=== PATIENT | female | born 1930 | race Caucasian/White ===

== ENCOUNTER → 2016-09-08 | Outpatient (CLI) | payer OTHER, MEDICARE | LOC: BMCIMAGING 10:07 | PROVIDERS: ATTEND Orthopaedic Surgery | DX: M25.851 Other specified joint disorders, right hip (principal); Z96.642 Presence of left artificial hip joint ==

== ENCOUNTER → 2016-11-23 | Outpatient (CLI) | payer OTHER, MEDICARE | LOC: BMCIMAGING 13:24 | PROVIDERS: ATTEND Physician Assistant | DX: M25.562 Pain in left knee (principal); W19.XXXA Unspecified fall, initial encounter ==

== ENCOUNTER → 2018-02-15 | Outpatient (CLI) | payer OTHER, MEDICARE | LOC: BMCIMAGING 09:29 | PROVIDERS: ATTEND Orthopaedic Surgery | DX: M16.11 Unilateral primary osteoarthritis, right hip (principal); Z96.642 Presence of left artificial hip joint ==

== ENCOUNTER → 2018-04-18 | Outpatient (CLI) | payer OTHER, MEDICARE | LOC: FIMAGING 12:49 | PROVIDERS: ATTEND Urology | DX: N20.0 Calculus of kidney (principal); K57.30 Diverticulosis of large intestine without perforation or abscess without bleeding; K59.00 Constipation, unspecified; Z87.440 Personal history of urinary (tract) infections ==

== ENCOUNTER → 2018-06-30 | Outpatient (CLI) | payer OTHER, MEDICARE | LOC: FIMAGING 13:35 | PROVIDERS: ATTEND Orthopaedic Surgery | DX: M16.11 Unilateral primary osteoarthritis, right hip (principal) ==

== ENCOUNTER 2018-09-25 09:54 | Inpatient (IN) | payer OTHER, MEDICARE ==
--- NOTE | 2018-09-25 06:49 | PDIAF ---
- Diagnosis Diagnosis: right hip djd Code Status: Full Code - Medication Management Discharge Medications: electronically signed and located in the Home Medication List. - Orders Services needed: Home Care, Physical Therapy Home Care Face to Face: I certify that this patient was under my care and that I had the required zclw-ed-qoin encounter meeting the encounter requirements on the discharge day. My findings support the fact that the patient is homebound as defined in Home Care Face to Face Continued: CMS Chapter 7 Medicare Benefits Manual 30.1.1 , The condition of the patient is such that there exists a normal inability to leave home and consequently, leaving home would require a considerable and taxing effort. Diet Recommendation: no restrictions on diet Diet Texture: Regular Texture Diet Additional Instructions: TOTAL JOINT ARTHROPLASTY DISCHARGE INSTRUCTIONS 1. Your surgeon follows the [facility] protocol for reducing your risk of DVT (blood clots) following surgery. Medication will be ordered to prevent blood clots. A sudden increase in calf pain and/or swelling could indicate a blood clot in your leg. If this occurs, please call your surgeon or his/her bookkeeping assistant. An ultrasound of the leg may be necessary to diagnose a blood clot. If you have conditions that make you a higher risk for blood clots, your surgeon may use more aggressive ways to prevent them. Notify your surgeon if you think you are a high risk for blood clots. 2. Wear your white surgical stockings (KESHA hose) for 2 weeks. This decreases your swelling and may help prevent blood clots. It is ok to remove KESHA hose at night time to give your legs a break. 3. Swelling and bruising in the surgical leg is common. If you feel that it is excessive, please notify your surgeon. 4. Elevate your surgical leg with the ankle above the hip several times every day. Please keep the leg straight when you elevate by putting pillows under your foot. Do not put pillows under your knee. This will make being able to fully straighten more difficult. This is uncomfortable, but try to do it as much as possible. 5. For total knee replacements use compressive wrap on your knee for 3-5 days after surgery, then you can discontinue it. 6. Use a walker or crutches for 1-2 weeks. Progress your weight-bearing as tolerated. You may start to use a cane when you feel stable and safe. 7. You will receive physical therapy instructions in the hospital. Continue those exercises at home. There are additional exercises in the total joint booklet you were given before surgery. Outpatient physical therapy will begin 7- 10 days after surgery. Please schedule this in advance. 8. Use ice on your knee at least 3-5 times every day for 30 minutes. This helps reduce pain and swelling. Also use it at night before falling asleep. 9. Leave your surgical dressing in place for 2 weeks. Your dressing is water resistant, but not waterproof. Cover it with Saran Wrap or Tjqxq-r-Etah before showering. You may shower as soon as you feel safe entering a shower. If you notice bleeding from your incision 2 or 3 days after surgery, please notify your surgeon. 10. Due to narcotics, decreased activity and altered diet, most patients experience constipation after surgery. Use mpbf-kze-kkgwrwy stool softeners while you are on narcotics. 11. You may drive a car when you are comfortable bearing weight, have good muscular control of your leg and are off narcotics. This usually occurs 2-4 weeks after surgery, depending on which leg was operated on. 12. If there are questions not addressed here, please refer the [facility] book given for more information. If you still have questions, please contact your surgeon s office. 13. If you have a life-threatening emergency, please call 911 and go to the emergency room immediately. For non-life threatening emergencies, please call your physicians office for advice before going to the emergency room. - Follow Up Care Current Providers and Referrals: Ivanna Ferro MD [Primary Care Provider] - Antony Miguel MD [Medical Doctor] -
--- NOTE | 2018-09-25 06:49 | PDHPUP ---
History & Physical Update H&P update statement: This history and physical update is based on an assessment of the patient which was completed after admission or registration (within 24 hours), but prior to the surgery/procedure. H&P update: no change in patient's condition since H&P completed
[~2018-09-25 09:54] MED LIST: ROPIVACAINE 0.2% 80 MG, EPINEPHrine 0.2 MG, KETOROLAC TROMETHAMINE 30 MG, morphINE 10 M... IU ONE; TRANEXAMIC ACID 1,000 MG in NS 100 ML IV ONE
[2018-09-25] MEDS ORDERED: ceFAZolin 1 GM/5 ML SYR ONE (10:33)
[2018-09-25] MEDS ORDERED: ceFAZolin 2 GM/DEXTROSE 100 ML IV ONE (10:36)
[2018-09-25] MEDS ORDERED: LR 1,000 ML IV ONE (10:36)
[2018-09-25] MEDS ORDERED: LIDOCAINE 1% 2 ML INJ ID PRN (10:36)
[2018-09-25] MEDS ORDERED: FAMOTIDINE 20 MG TAB PO ONE (10:36)
[2018-09-25] MEDS ORDERED: ACETAMINOPHEN 325 MG TAB PO ONE (10:36)
--- NOTE | 2018-09-25 13:14 | PDANEPAE ---
ANE Past Medical History - Cardiovascular History Hx Hypertension: Yes Hx Arrhythmias: No Hx Chest Pain: No Hx Coronary Artery / Peripheral Vascular Disease: No Hx CHF / Valvular Disease: No Hx Palpitations: No - Pulmonary History Hx COPD: No Hx Asthma/Reactive Airway Disease: No Hx Recent Upper Respiratory Infection: No Hx Oxygen in Use at Home: Yes O2 in Use at Home (L/minute): 2.L nocturnal hypoxia Hx Sleep Apnea: No Sleep Apnea Screening Result - Last Documented: Negative - Neurologic History Hx Cerebrovascular Accident: No Hx Seizures: No Hx Dementia: No - Endocrine History Hx Diabetes: No - Renal History Hx Renal Disorders: No Renal History Comment: 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 TOTAL L ANKLE REPLACEMENT. 3 SURGERIES R KIDNEY FOR INFECTIONS 2012. Left hip arthoplasy 2015 ANE Review of Systems Review of Systems: - Exercise capacity METS (RN): 4 METS ANE Patient History - Allergies Allergies/Adverse Reactions: gabapentin Allergy (Verified 08/29/18 12:48) depression - Home Medications Home Medications: Acetamn/Diphenhydramine 500/25 [Tylenol PM (*)] 1 each PO HS PRN 06/26/18 [Last Taken Unknown] Budesonide [Rhinocort Allergy] 1 spray NS DAILY PRN 06/26/18 [Last Taken ] Estradiol [Estrace Vaginal (*)] 1 baldo VG Q3D@21 06/26/18 [Last Taken 09/21/18] Losartan Potassium [Cozaar 25 mg (*)] 25 mg PO HS 06/26/18 [Last Taken 1 Day Ago ~09/24/18] Multivitamins [Multivitamin (*)] 1 each PO HS 06/26/18 [Last Taken 1 Week Ago ~ 09/18/18] Sodium Cl Nasal [[place] (*)] 1 spray NS DAILY PRN 06/26/18 [Last Taken 07/15] amLODIPine BESYLATE [Norvasc 5 mg (*)] 5 mg PO HS 06/26/18 [Last Taken 1 Day Ago ~09/24/18] - NPO status NPO Since - Liquids (Date): 09/25/18 NPO Since - Liquids (Time): 09:30 NPO Since - Solids (Date): 09/24/18 NPO Since - Solids (Time): 18:30 - Smoking Hx Smoking Status: Never smoked - Family Anes Hx Family Hx Anesthesia Complications: none known ANE Labs/Vital Signs - Labs - CBC Platelet Count: 221 - Vital Signs Height: 172.72 cm Weight: 70.307 kg ANE Physical Exam - Airway Neck exam: decreased ROM Mallampati Score: Class 3 Mouth exam: normal dental/mouth exam - Pulmonary Pulmonary: clear to auscultation - Cardiovascular Cardiovascular: regular rate and rhythym - ASA Status ASA Status: II ANE Anesthesia Plan Anesthesia Plan: spinal
[2018-09-25] MEDS ORDERED: PROPOFOL/EMULSION 500 MG/50 ML BOTTLE IV ONE (13:38)
[2018-09-25] MEDS ORDERED: BUPIVACAINE/DEXTROSE 7.5MG/ML 2 ML SPINAL AMP SP ONE (13:44)
[2018-09-25] MEDS ORDERED: PHENYLEPHRINE HCL 100 MCG/ML SYR ONE (14:52)
[2018-09-25] MEDS ORDERED: MEPERIDINE 25 MG/0.5 ML AMP IVP PRN (15:08)
[2018-09-25] MEDS ORDERED: DEXAMETHASONE 4 MG/ML VIAL IVP PRN (15:08)
[2018-09-25] MEDS ORDERED: LR 500 ML IV PRN (15:08)
[2018-09-25] MEDS ORDERED: ONDANSETRON 4 MG/2 ML VIAL IVP PRN ×2 (15:08→15:15)
[2018-09-25] MEDS ORDERED: NALOXONE HCL 0.4 MG/ML INJ IVP PRN (15:08)
[2018-09-25] MEDS ORDERED: METOCLOPRAMIDE 10 MG/2 ML VIAL IVP PRN ×2 (15:08→15:15)
[2018-09-25] MEDS ORDERED: HYDROmorphONE/DILAUDID 1 MG/ML INJ IVP PRN (15:08)
[2018-09-25] MEDS ORDERED: TEMAZEPAM 15 MG CAP PO PRN (15:15)
[2018-09-25] MEDS ORDERED: diphenhydrAMINE 25 MG CAP PO PRN (15:15)
[2018-09-25] MEDS ORDERED: DIPHENOXYLATE/ATROPINE LOMOTIL 1 TAB PO PRN (15:15)
[2018-09-25] MEDS ORDERED: oxyCODONE IR 5 MG TAB PO PRN (15:15)
[2018-09-25] MEDS ORDERED: traMADol 50 MG TAB PO PRN (15:15)
[2018-09-25] MEDS ORDERED: POLYETHYLENE GLYCOL 3350 17 GM PKT PO PRN (15:15)
[2018-09-25] MEDS ORDERED: LACTULOSE 20 GM/30 ML UDCUP PO PRN (15:15)
[2018-09-25] MEDS ORDERED: CYCLOBENZAPRINE 10 MG TAB PO PRN (15:15)
[2018-09-25] MEDS ORDERED: ONDANSETRON DISINTEGRATING 4 MG TAB PO PRN (15:15)
[2018-09-25] MEDS ORDERED: BISACODYL 10 MG SUPP PR PRN (15:15)
[2018-09-25] MEDS ORDERED: MAGNESIUM HYDROXIDE 30 ML UDCUP PO PRN (15:15)
[2018-09-25] MEDS ORDERED: PROMETHAZINE HCL 25 MG/ML INJ IVP PRN (15:15)
[2018-09-25] MEDS ORDERED: PROMETHAZINE HCL 25 MG SUPPR PR PRN (15:15)
--- NOTE | 2018-09-25 15:15 | POSTOPPROG ---
Post Op Note Date of Operation: 09/25/18 Surgeon: Antony Miguel Hide And Skin Colerer: shruthi Anesthesiologist: radha Anesthesia: Spinal Pre-op Diagnosis: right hip djd Post-op Diagnosis: same Indication: same Procedure: right mario Inf/Abcess present in the surg proc area at time of surgery?: No Depth: Deep Incisional (Fascial) EBL: 100-500 Drains: Hemovac
[2018-09-25] MEDS ORDERED: SODIUM CL NASAL 45 ML BTL NS PRN (15:17)
--- NOTE | 2018-09-25 15:23 | PDMN ---
Medical Necessity Medical necessity: Pt meets IP criteria as of 09/25/2018 per and MCG S-560 (MARITZA ); Medicare inpatient only procedure
[2018-09-25] MEDS ORDERED: FLUTICASONE NASAL 120 SPRAYS/16 GM MDI EACHNARE PRN (15:26)
[2018-09-25] MEDS ORDERED: LR 1,000 ML IV SCH (15:30)
[2018-09-25] MEDS ORDERED: fentaNYL 100 MCG/2 ML INJ ONE (16:10)
[2018-09-25] MEDS: fentaNYL 100 MCG/2 ML INJ IVP PRN ×2 (16:14→16:41)
[2018-09-25] MEDS: SENNOSIDES/DOCUSATE SODIUM TAB PO SCH (20:21)
[2018-09-25] MEDS: LOSARTAN POTASSIUM 25 MG TAB PO SCH (20:25)
[2018-09-25] MEDS: TRANEXAMIC ACID 650 MG TAB PO SCH (20:26)
[2018-09-25] MEDS: FAMOTIDINE 20 MG TAB PO SCH (20:26)
[2018-09-25] MEDS: amLODIPine BESYLATE 5 MG TAB PO SCH (20:26)
[2018-09-25] MEDS: ACETAMINOPHEN 325 MG TAB PO SCH ×2 (20:28→20:32)
[2018-09-25] MEDS: ASPIRIN 325 MG TAB PO SCH (20:34)
[2018-09-25] MEDS ORDERED: ESTRADIOL 42.5 GM CRTUBE VG SCH (21:00)
[2018-09-25] MEDS: ceFAZolin 2 GM/DEXTROSE 100 ML IV SCH (21:08)
[2018-09-26] MEDS: ACETAMINOPHEN 325 MG TAB PO SCH ×4 (04:14→21:06)
[2018-09-26] MEDS: ceFAZolin 2 GM/DEXTROSE 100 ML IV SCH (05:36)
[2018-09-26] MEDS: TRANEXAMIC ACID 650 MG TAB PO SCH ×2 (05:38→16:14)
--- NOTE | 2018-09-26 07:46 | SOAPPROG ---
SOAP Progress Note Assessment/Plan: Assessment: s/p right mario Plan:kali tapia in 72 hours inpatient status dvt precautions mobilize with pt 09/26/18 07:44 Subjective: min pain no cp or sob ivory po Objective: Vital Signs Temp Pulse Resp BP Pulse Ox 36.7 C 78 16 136/64 H 93 09/26/18 04:00 09/26/18 04:00 09/26/18 04:00 09/26/18 04:00 09/26/18 04:00 Laboratory Results 09/26/18 04:30 09/25/18 09/26/18 09/27/18 05:59 05:59 05:59 Intake Total 500 Output Total 520 Balance -20 dressing intact intact pf,df,ehl toes warm and pink neg homans bogdan xrays stable anatomic alignement ICD10 Worksheet Patient Problems: Problems Problem Status Onset Hypertension Acute TIA (transient ischemic attack) Acute
[2018-09-26] MEDS: ASPIRIN 325 MG TAB PO SCH (08:42)
[2018-09-26] MEDS: SENNOSIDES/DOCUSATE SODIUM TAB PO SCH ×2 (08:42→21:08)
[2018-09-26] MEDS: FAMOTIDINE 20 MG TAB PO SCH ×2 (08:43→21:06)
--- NOTE | 2018-09-26 14:26 | ASMTCMCOM ---
CM Note CM Note Notes: Pt had planned hip surgery. Pt resides at [facility]. PT rec SNF, pt wants to d/c to [facility] ER. Spoke with Luma in [facility] admissions, she reports she will have a bed for pt . D/c plan of care: [facility] Date Signed: 09/26/2018 02:25 PM Electronically Signed By:JOHN Gómez
[2018-09-26] MEDS: amLODIPine BESYLATE 5 MG TAB PO SCH (21:06)
[2018-09-26] MEDS: LOSARTAN POTASSIUM 25 MG TAB PO SCH (21:07)
[2018-09-27] MEDS: ACETAMINOPHEN 325 MG TAB PO SCH ×4 (02:39→23:39)
--- NOTE | 2018-09-27 06:31 | SOAPPROG ---
SOAP Progress Note Assessment/Plan: Assessment: s/p right mario Plan: no issues kali tapia inpatient status dvt precautions mobilize with pt 09/26/18 07:44 09/27/18 06:30 Subjective: no pain moving well no cp or sob Objective: Vital Signs Temp Pulse Resp BP Pulse Ox 37 C 74 14 145/62 H 95 09/26/18 21:00 09/27/18 00:00 09/27/18 00:00 09/27/18 00:00 09/27/18 00:00 Laboratory Results 09/27/18 04:30 09/26/18 09/27/18 09/28/18 05:59 05:59 05:59 Intake Total 500 Output Total 520 200 Balance -20 -200 dressing intact intact pf,df, ehl toes warm and pink neg homans bogdan dressing changed ICD10 Worksheet Patient Problems: Problems Problem Status Onset Hypertension Acute TIA (transient ischemic attack) Acute
[2018-09-27] MEDS: ASPIRIN 325 MG TAB PO SCH (08:49)
[2018-09-27] MEDS: FAMOTIDINE 20 MG TAB PO SCH ×2 (08:50→20:37)
[2018-09-27] MEDS: SENNOSIDES/DOCUSATE SODIUM TAB PO SCH ×2 (10:00→20:37)
[2018-09-27] MEDS: LOSARTAN POTASSIUM 25 MG TAB PO SCH (20:35)
[2018-09-27] MEDS: amLODIPine BESYLATE 5 MG TAB PO SCH (20:36)
[2018-09-28] MEDS ORDERED: ACETAMINOPHEN 325 MG TAB PO SCH (06:00)
--- NOTE | 2018-09-28 06:31 | PDIAF ---
- Diagnosis Diagnosis: right hip djd Code Status: Full Code - Medication Management Discharge Medications: electronically signed and located in the Home Medication List. - Orders Services needed: Home Care, Physical Therapy Home Care Face to Face: I certify that this patient was under my care and that I had the required uniq-cm-digh encounter meeting the encounter requirements on the discharge day. My findings support the fact that the patient is homebound as defined in Home Care Face to Face Continued: CMS Chapter 7 Medicare Benefits Manual 30.1.1 , The condition of the patient is such that there exists a normal inability to leave home and consequently, leaving home would require a considerable and taxing effort. Diet Recommendation: no restrictions on diet Diet Texture: Regular Texture Diet Additional Instructions: TOTAL JOINT ARTHROPLASTY DISCHARGE INSTRUCTIONS 1. Your surgeon follows the [facility] protocol for reducing your risk of DVT (blood clots) following surgery. Medication will be ordered to prevent blood clots. A sudden increase in calf pain and/or swelling could indicate a blood clot in your leg. If this occurs, please call your surgeon or his/her group fitness assistant department head. An ultrasound of the leg may be necessary to diagnose a blood clot. If you have conditions that make you a higher risk for blood clots, your surgeon may use more aggressive ways to prevent them. Notify your surgeon if you think you are a high risk for blood clots. 2. Wear your white surgical stockings (KESHA hose) for 2 weeks. This decreases your swelling and may help prevent blood clots. It is ok to remove KESHA hose at night time to give your legs a break. 3. Swelling and bruising in the surgical leg is common. If you feel that it is excessive, please notify your surgeon. 4. Elevate your surgical leg with the ankle above the hip several times every day. Please keep the leg straight when you elevate by putting pillows under your foot. Do not put pillows under your knee. This will make being able to fully straighten more difficult. This is uncomfortable, but try to do it as much as possible. 5. For total knee replacements use compressive wrap on your knee for 3-5 days after surgery, then you can discontinue it. 6. Use a walker or crutches for 1-2 weeks. Progress your weight-bearing as tolerated. You may start to use a cane when you feel stable and safe. 7. You will receive physical therapy instructions in the hospital. Continue those exercises at home. There are additional exercises in the total joint booklet you were given before surgery. Outpatient physical therapy will begin 7- 10 days after surgery. Please schedule this in advance. 8. Use ice on your knee at least 3-5 times every day for 30 minutes. This helps reduce pain and swelling. Also use it at night before falling asleep. 9. Leave your surgical dressing in place for 2 weeks. Your dressing is waterproof. You may shower as soon as you feel safe entering a shower. If you notice bleeding from your incision 2 or 3 days after surgery, please notify your surgeon. 10. Due to narcotics, decreased activity and altered diet, most patients experience constipation after surgery. Use rewv-jqr-bysvbcx stool softeners while you are on narcotics. 11. You may drive a car when you are comfortable bearing weight, have good muscular control of your leg and are off narcotics. This usually occurs 2-4 weeks after surgery, depending on which leg was operated on. 12. If there are questions not addressed here, please refer the [facility] book given for more information. If you still have questions, please contact your surgeon s office. 13. If you have a life-threatening emergency, please call 911 and go to the emergency room immediately. For non-life threatening emergencies, please call your physicians office for advice before going to the emergency room. - Follow Up Care Current Providers and Referrals: Ivanna Ferro MD [Primary Care Provider] - Antony Miguel MD [Medical Doctor] -
--- NOTE | 2018-09-28 06:32 | SOAPPROG ---
SOAP Progress Note Assessment/Plan: Assessment: s/p right mario Plan: no issues kali tapia today inpatient status dvt precautions mobilize with pt 09/26/18 07:44 09/27/18 06:30 09/28/18 06:31 Subjective: min pain with tylenol for pain control no cp or sob Objective: Vital Signs Temp Pulse Resp BP Pulse Ox 37.2 C 74 16 147/87 H 95 09/27/18 23:43 09/27/18 23:43 09/27/18 23:43 09/27/18 23:43 09/27/18 23:43 Laboratory Results 09/27/18 04:30 09/27/18 10:45 09/27/18 09/28/18 09/29/18 05:59 05:59 05:59 Intake Total 400 325 Output Total 200 300 Balance 200 25 drssing intact intact pf,df,ehl toes warm and pink neg homans bogdan ICD10 Worksheet Patient Problems: Problems Problem Status Onset Chronic Disease Mgmt/Transitional care Acute Hypertension Acute TIA (transient ischemic attack) Acute
[2018-09-28 07:36] VITALS: BP 145/55
--- NOTE | 2018-09-28 10:03 | PDIAF ---
- Diagnosis Diagnosis: right hip djd Code Status: Full Code - Medication Management Discharge Medications: electronically signed and located in the Home Medication List. - Orders Services needed: Physical Therapy Diet Recommendation: no restrictions on diet Diet Texture: Regular Texture Diet Additional Instructions: TOTAL JOINT ARTHROPLASTY DISCHARGE INSTRUCTIONS 1. Your surgeon follows the [facility] protocol for reducing your risk of DVT (blood clots) following surgery. Medication will be ordered to prevent blood clots. A sudden increase in calf pain and/or swelling could indicate a blood clot in your leg. If this occurs, please call your surgeon or his/her respiratory assistant. An ultrasound of the leg may be necessary to diagnose a blood clot. If you have conditions that make you a higher risk for blood clots, your surgeon may use more aggressive ways to prevent them. Notify your surgeon if you think you are a high risk for blood clots. 2. Wear your white surgical stockings (KESHA hose) for 2 weeks. This decreases your swelling and may help prevent blood clots. It is ok to remove KESHA hose at night time to give your legs a break. 3. Swelling and bruising in the surgical leg is common. If you feel that it is excessive, please notify your surgeon. 4. Elevate your surgical leg with the ankle above the hip several times every day. Please keep the leg straight when you elevate by putting pillows under your foot. Do not put pillows under your knee. This will make being able to fully straighten more difficult. This is uncomfortable, but try to do it as much as possible. 5. For total knee replacements use compressive wrap on your knee for 3-5 days after surgery, then you can discontinue it. 6. Use a walker or crutches for 1-2 weeks. Progress your weight-bearing as tolerated. You may start to use a cane when you feel stable and safe. 7. You will receive physical therapy instructions in the hospital. Continue those exercises at home. There are additional exercises in the total joint booklet you were given before surgery. Outpatient physical therapy will begin 7- 10 days after surgery. Please schedule this in advance. 8. Use ice on your knee at least 3-5 times every day for 30 minutes. This helps reduce pain and swelling. Also use it at night before falling asleep. 9. Leave your surgical dressing in place for 2 weeks. Your dressing is waterproof. You may shower as soon as you feel safe entering a shower. If you notice bleeding from your incision 2 or 3 days after surgery, please notify your surgeon. 10. Due to narcotics, decreased activity and altered diet, most patients experience constipation after surgery. Use nxqu-itz-hsnsrqa stool softeners while you are on narcotics. 11. You may drive a car when you are comfortable bearing weight, have good muscular control of your leg and are off narcotics. This usually occurs 2-4 weeks after surgery, depending on which leg was operated on. 12. If there are questions not addressed here, please refer the [facility] book given for more information. If you still have questions, please contact your surgeon s office. 13. If you have a life-threatening emergency, please call 911 and go to the emergency room immediately. For non-life threatening emergencies, please call your physicians office for advice before going to the emergency room. - Follow Up Care Current Providers and Referrals: Ivanna Ferro MD [Primary Care Provider] - Antony Miguel MD [Medical Doctor] -
[2018-09-28] MEDS: ASPIRIN 325 MG TAB PO SCH (11:24)
[2018-09-28] MEDS: FAMOTIDINE 20 MG TAB PO SCH (11:25)
--- NOTE | 2018-09-28 11:28 | ASMTLACE ---
LACE Length of stay for Answers: 4-6 days current admission Acuity / Level of Answers: Yes Care: Did the patient have an inpatient admission? Comorbidities - select Answers: Other Notes: HTN all that apply # of Emergency department Answers: 0 visits in the last 6 months Score: 8 Date Signed: 09/28/2018 11:27 AM Electronically Signed By:JOHN Gómez
--- NOTE | 2018-09-28 11:30 | ASMTCMCOM ---
CM Note CM Note Notes: Pt medically stable for d/c to [facility], orders sent in [employer]. ESTRELLA Jarquin to call report. Pt agrees to [facility] to bill to her [facility] account, [id number] pickup. Date Signed: 09/28/2018 11:29 AM Electronically Signed By:JOHN Gómez
--- NOTE | 2018-10-02 12:19 | POSTANESTH ---
Post Anesthetic Evaluation Cardiovascular Status: Normal, Stable Respiratory Status: Normal, Stable Level of Consciousness/Mental Status: Can Participate in Eval Pain Control: Adequate, Prn Tx Ordered Nausea/Vomiting Control: Adequate, Prn Tx Ordered Complications Possibly Related to Anesthesia: None Noted
== END 2018-09-28 13:52 | DRG 470 ==
LOC: F3N 09:54
PROVIDERS: ADMIT Orthopaedic Surgery; ATTEND Orthopaedic Surgery
DX: M16.11 Unilateral primary osteoarthritis, right hip (principal); I10 Essential (primary) hypertension; Z99.81 Dependence on supplemental oxygen; R09.02 Hypoxemia; Z96.642 Presence of left artificial hip joint; Z96.662 Presence of left artificial ankle joint
CPT/HCPCS: 97116-GP; 97161-GP; 97166-GO; 97535-GO; J0171; J0690; J1885; J2270; J2370; J2704; J2795; J3010

== ENCOUNTER → 2018-11-08 | Outpatient (CLI) | payer OTHER, MEDICARE | LOC: BMCIMAGING 10:36 | PROVIDERS: ATTEND Orthopaedic Surgery | DX: Z09 Encounter for follow-up examination after completed treatment for conditions other than malignant neoplasm (principal); Z96.641 Presence of right artificial hip joint ==

== ENCOUNTER → 2018-12-13 | Outpatient (CLI) | payer OTHER, MEDICARE | LOC: BMCIMAGING 12:58 ==